=== PATIENT | female | born 1945 | race Caucasian/White ===

== ENCOUNTER 2021-11-10 13:48 | Outpatient (RCR) | payer MEDICARE, SELFPAY ==
--- NOTE | ~2021-11-10 | XR_ITS ---
EXAMINATION: XR FOOT, LEFT CLINICAL INFORMATION: Nonhealing left foot wound COMPARISON: None TECHNIQUE: AP, lateral, and oblique views of the left foot. FINDINGS: There is large amount soft tissue swelling seen about the ankle and medial aspect of the left foot. There appears to be a dressing overlying the lateral aspect base of the 5th metatarsal without significant underlying soft tissue swelling. No definite periosteal new bone formation. There is some irregularity of the base of the 5th metatarsal and 5th metatarsophalangeal joint; however, this is likely degenerative in nature. There appears to be some cortical irregularity about the lateral aspect of the calcaneus and proximal cuboid. It is difficult to tell whether this could possibly be a site of osteomyelitis; however, I do not know if this corresponds to the nonhealing left foot wound. Calcaneal spurs sites of insertion of Achilles and plantar tendons noted. No gas within the soft tissues identified. Phalanges are not well evaluated due to angulation of the metatarsophalangeal and proximal interphalangeal joints. XR/XR foot LT 2V IMPRESSION: Calcaneal spurs. Soft tissue edema. Region of some cortical irregularity about the lateral calcaneus and cuboid. Correlate with region of wound/ulcer.
[2021-11-10 15:38] LABS: MANUAL DIFF FLAG NO
[2021-11-10 16:01] LABS: Basophils Absolute Auto 0.1 X10*3/uL (0.0-0.2); Basophils Percent Auto 0.7 % (0-2); Eosinophils Absolute Auto 0.6 X10*3/uL (0.0-0.4); Eosinophils Percent Auto 4.5 % (0-4); Hematocrit 40.9 % (37.0-47.0); Hemoglobin 12.9 g/dl (12.0-16.0); Imm Gran Abs Auto 0.05 X10*3/uL (0.00-0.03); Imm Gran Pct Auto 0.4 % (0.0-0.4); Lymphocytes Absolute Auto 2.7 X10*3/uL (1.2-4.9); Lymphocytes Percent Auto 22.6 % (20-40); Mean Corpuscular HGB Conc 31.5 g/dl (31.0-35.0); Mean Corpuscular Hemoglobin 30.1 pg (27.0-33.0); Mean Corpuscular Volume 95.3 fL (80.0-98.0); Mean Platelet Volume 10.2 fL (9.4-12.3); Monocytes Absolute Auto 1.1 X10*3/uL (0.1-1.2); Monocytes Percent Auto 9.3 % (2-11); Neutrophils Absolute Auto 7.6 x10*3/uL (2.0-8.3); Neutrophils Percent Auto 62.5 % (45-73); Platelet Count 391 X10*3/uL (160-400); Red Blood Count 4.29 X10*6/uL (4.20-5.50); Red Cell Distribution Width 13.2 % (11.0-16.0); White Blood Count 12.1 X10*3/uL (4.8-10.8)
[2021-11-10 16:37] LABS: Anion Gap 11 (12-20); Blood Urea Nitrogen 14 mg/dL (9-16); Calcium 10.2 mg/dL (8.4-10.2); Carbon Dioxide 29 mmol/L (22-29); Chloride 104 mmol/L (96-108); Estimated Glomerular Filt Rate > 60; Glucose Random 108 mg/dL (60-115); Potassium 5.2 mmol/L (3.3-5.1); Sodium 139 mmol/L (135-145)
[2021-11-10 16:41] LABS: Estimated Average Glucose 114 mg/dL; Hemoglobin A1c % 5.6 %
[2021-11-10 17:16] LABS: Erythrocyte Sedimentation Rate 31 MM/HR (0-20)
== END 2021-12-01 13:34 | disposition home or self-care (01) ==
LOC: HO.WCC 13:48
PROVIDERS: PCP Internal Medicine; Visit Provider Physician Assistant
DX: Z09 Encounter for follow-up examination after completed treatment for conditions other than malignant neoplasm (principal); I10 Essential (primary) hypertension; I73.9 Peripheral vascular disease, unspecified; Q82.0 Hereditary lymphedema
CPT/HCPCS: 36415; 73620; 80048; 83036; 84134; 85025; 85652; 86140; 99212; 99214

== ENCOUNTER 2022-03-29 12:57 | Outpatient (RCR) | payer MEDICARE, SELFPAY | END 2022-04-30 14:22 | disposition home or self-care (01) | LOC: HO.WCC 12:57 | PROVIDERS: PCP Internal Medicine; Visit Provider Physician Assistant | DX: L97.522 Non-pressure chronic ulcer of other part of left foot with fat layer exposed; L97.519 Non-pressure chronic ulcer of other part of right foot with unspecified severity; I73.9 Peripheral vascular disease, unspecified; Q82.0 Hereditary lymphedema; L84 Corns and callosities; D17.39 Benign lipomatous neoplasm of skin and subcutaneous tissue of other sites; I10 Essential (primary) hypertension; G62.9 Polyneuropathy, unspecified | CPT/HCPCS: 11042; 11055; 97597; 99212; 99214 ==

== ENCOUNTER 2022-06-09 09:00 | Outpatient (RCR) | payer MEDICARE, SELFPAY | END 2022-06-28 14:06 | disposition home or self-care (01) | LOC: HO.WCC 09:00 | PROVIDERS: PCP Internal Medicine; Visit Provider Surgery | DX: L97.312 Non-pressure chronic ulcer of right ankle with fat layer exposed (principal); Q82.0 Hereditary lymphedema | CPT/HCPCS: 11042; 99212 ==